=== PATIENT | male | born 1990 | race Hispanic/Latino ===

== ENCOUNTER 2016-04-09 22:33 | Observation (INO) | payer OTHER ==
[~2016-04-09] VITALS: Ht 177.8 cm; Wt 81.6 kg
--- NOTE | 2016-04-09 22:35 | NUR ---
PT BIBA FOR LEFT SIDED STABBING CHEST PAIN X2 DAYS. PT REPORTS PAIN INCREASES UPON INSPIRATION. PRIOR MEDICAL HX OF ASTHMA. PT DENIED SHORTNESS OF BREATH. PT CALM DURING ASSESSMENT BY PA.
--- NOTE | 2016-04-09 22:36 | NUR ---
FITZ REYES AT BEDSIDE FOR EVAL
--- NOTE | 2016-04-09 22:38 | ED GENERAL ADULT ---
See Addendum History of Present Illness General Chief Complaint: Chest Pain Stated Complaint: CHEST PAIN Source: patient Exam Limitations: no limitations Vital Signs & Intake/Output Vital Signs & Intake/Output Vital Signs Date Time Temp Pulse Resp B/P Pulse O2 O2 Flow FiO2 Ox Delivery Rate 04/10 0316 97.7 52 18 122/78 95 Room Air 04/10 0135 97.4 55 18 113/56 97 Room Air 04/10 0042 Room Air 04/09 2241 98.3 60 24 142/80 ED Intake and Output 04/10 0000 04/09 1200 Intake Total Output Total Balance Patient 180 lb Weight Allergies Coded Allergies: No Known Allergies (04/09/16) Reconcile Medications No Known Home Medications Triage Note: PT BIBA FOR CHEST PAIN X2 DAYS. EMS REPORTS PAIN "STABBING" WITH INCREASED PAIN ON RESPIRATION. Triage Nurses Notes Reviewed? yes Onset: Abrupt Duration: day(s): (3), constant Timing: recent history Severity: moderate, severe No Modifying Factors: none HPI: 25-YEAR-OLD MALE COMES INTO EMERGENCY ROOM WITH MULTIPLE COMPLAINTS. pATIENT REPORTS THAT FOR THE PAST 2-3 days he has been expressing some chest pain. Sharp. Continuous. Pain is nonradiating. Denies any fever chills vomiting. Patient reports that this morning he began with a headache as well as some left- sided numbness and weakness. Denies any neck pain or vomiting. Some associated shortness of breath. Denies any history of blood clots. Nothing seems to make the symptoms better or worse. (ANITA BAH) Past History Medical History Any Pertinent Medical History? none Surgical History Surgical History: non-contributory Family History Hx Contributory? No (ANITA BAH) Review of Systems Review of Systems Constitutional: Reports: no symptoms. EENTM: Reports: no symptoms. Respiratory: Reports: see HPI. Cardiovascular: Reports: see HPI. GI: Reports: no symptoms. Genitourinary: Reports: no symptoms. Musculoskeletal: Reports: no symptoms. Skin: Reports: no symptoms. Neurological/Psychological: Reports: see HPI. Hematologic/Endocrine: Reports: no symptoms. Immunologic/Allergic: Reports: no symptoms. All Other Systems: Reviewed and Negative (ANITA BAH) Physical Exam Physical Exam General Appearance: well developed/nourished, alert, awake, mild distress Head: atraumatic, normal appearance Eyes: Bilateral: normal appearance, PERRL, EOMI. Ears, Nose, Throat: normal pharynx, normal ENT inspection Neck: normal inspection, supple, full range of motion Respiratory: normal breath sounds, chest non-tender, no respiratory distress Cardiovascular: regular rate/rhythm Gastrointestinal: soft, non-tender Back: normal inspection Extremities: normal inspection Neurologic/Psych: awake, alert, oriented x 3, 3 out of 5 strength left upper extremity left lower extremity, pronator drift, Skin: intact, normal color Comments: - perc score, low prob wells criteria Core Measures ACS in differential dx? Yes CVA/TIA Diagnosis: No Severe Sepsis Present: No Septic Shock Present: No (AMY BYRNES,ANITA) Progress Differential Diagnoses I considered the following diagnoses in my evaluation of the patient: CVA, [place], pulmonary embolism, anxiety, pericarditis, Lyme disease, Gilliane barre syndrome , moyamoya syndrome, Plan of Care: Orders Procedure Date/time Status Regular Diet 04/10 B Active TROPONIN LEVEL 04/10 0315 Complete URINE DRUG SCREEN FOR ER ONLY 04/10 0231 Complete URINALYSIS 04/[address] in observation 04/09 2345 Active Patient Data 04/09 2345 Active Code Status 04/09 2345 Active Add-on Test (ER Only) 04/09 2332 Active Intake & Output 04/09 2254 Active LYME TITRE 04/09 2250 Active TROPONIN LEVEL 04/09 223 Complete PARTIAL THROMBOPLASTIN TIME 04/09 223 Complete PROTHROMBIN TIME 04/09 223 Complete COMPREHENSIVE METABOLIC PANEL 04/09 223 Complete CBC WITHOUT DIFFERENTIAL 04/09 2236 Complete EKG 04/09 2236 Active Current Medications Sig/Saida Start time Last Medication Dose Stop Time Status Admin Ketorolac 60 MG ONCE ONE 04/10 0200 CAN Tromethamine 04/10 0201 (Toradol) Laboratory Tests 04/10/16 0323: Troponin I < 0.01 04/10/16 0234: Urine Opiates Screen < 100.00, Methadone Screen < 40, Barbiturate Screen < 60, Ur Phencyclidine Scrn < 6.00, Amphetamines Screen < 100, U Benzodiazepines Scrn < 85, Urine Cocaine Screen < 50, Urine Cannabis Screen > 80.00 H, Urine Color YEL, Urine Clarity CLEAR, Urine pH 6.0, Ur Specific [place] 1.025, Urine Protein NEG, Urine Ketones NEG, Urine Nitrite NEG, Urine Bilirubin NEG, Urine Urobilinogen 0.2, Ur Leukocyte Esterase NEG, Ur Microscopic SEDIMENT EXAMINED, Urine RBC RARE, Ur Epithelial Cells RARE, Urine Mucus MOD H, Urine Hemoglobin TRACE-INTACT H, Urine Glucose NEG 04/09/162249: Anion Gap 9, Estimated GFR > 60, BUN/Creatinine Ratio 13.0, Glucose 117 H, Calcium 9.3, Total Bilirubin 0.4, AST 19, ALT 21, Alkaline Phosphatase 82, Troponin I < 0.01, Total Protein 6.4, Albumin 3.8, Globulin 2.6, Albumin/ Globulin Ratio 1.5, PT 10.0, INR 0.95, APTT 30, CBC w Diff NO MAN DIFF REQ, RBC 4.64 L, MCV 90.4, MCH 30.3, RDW 14.3, MPV 8.4, Gran % 47.9, Lymphocytes % 41.1, Monocytes % 6.7, Eosinophils % 3.5, Basophils % 0.8, Absolute Granulocytes 4.3, Absolute Lymphocytes 3.7 H, Absolute Monocytes 0.6, Absolute Eosinophils 0.3, Absolute Basophils 0.1, PUBS MCHC 33.5, Lyme Disease Antibody Pending Diagnostic Imaging: Viewed by Me: CT Scan. Discussed w/RAD: CT Scan. Radiology Impression: SERVICE DATE: 04/09/16 EXAM TYPE: CAT - CT HEAD WO IV CONTRAST EXAMINATION: CT HEAD WITHOUT CONTRAST CLINICAL INFORMATION: Weakness left side of body. Evaluate for cerebrovascular accident. COMPARISON: No relevant prior imaging is available. TECHNIQUE: Contiguous axial imaging was performed from the skull base to vertex without intravenous administration of contrast. DLP: 529.16 mGy-cm. FINDINGS: There is no acute intracranial hemorrhage or abnormal extra-axial collection. No intracranial mass effect or midline shift. Lateral and third ventricles are normal. No hydrocephalus. Ta- white matter differentiation is preserved and there is no evidence of acute territorial infarct. The calvarium and skull base are intact. Mastoid air cells and middle ear cavities are well aerated. Visualized paranasal sinuses are well aerated. IMPRESSION: Normal CT scan of the head. DICTATED BY: KIANA PAN,CHEPE Lafleur DATE/TIME DICTATED:04/09/162250 DIRECTOR COMPLIANCE:KATHY DATE/TIME TRANSCRIBED:04/09/162250 CONFIDENTIAL, DO NOT COPY WITHOUT APPROPRIATE AUTHORIZATION. Initial ED EKG: normal intervals, normal p-waves, normal QRS complex, normal sinus rhythm, rate (50) Hand-Off Endorsed To: FALGUNI ORELLANA MD Endorsed Time: 5 (ANITA BAH) Departure Departure Condition: Stable Clinical Impression Primary Impression: Chest pain Secondary Impressions: Headache Departure Forms: Customer Survey General Discharge Information Prescriptions: Current Visit Scripts No Known Home Medications (ANITA BAH) Departure Disposition: HOME OR SELF CARE Referrals: Dhara GRIFFITH MD Additional Instructions: Return if symptoms worsen or for any concerns. PA/SYNTHETIC FILAMENT SPINNER Co-Sign Statement Statement: ED Attending supervision documentation- [X] I saw and evaluated the patient. I have also reviewed all the pertinent lab results and diagnostic results. I agree with the findings and the plan of care as documented in the PA's/SYNTHETIC FILAMENT SPINNER's documentation. [X] I have reviewed the ED Record and agree with the PA's/SYNTHETIC FILAMENT SPINNER's documentation. [] Additions or exceptions (if any) to the PAs/SYNTHETIC FILAMENT SPINNER's note and plan are summarized below: [] (FALGUNI ORELLANA MD) Critical Care Note Critical Care Note Critical Care Time: 30-74 min (ANITA BAH) ED Attending Observation Initial Observation Note: I have seen and personally examined KO DO on 04/09/16 at 2343. I agree with the current emergency department documentation. The disposition (admission or discharge) is uncertain at this time, he needs a period of observation for the following reason(s): The ED Nurse caring for this patient has been personally informed as to what the patient is being observed for. (ANITA BAH) Initial Observation Note: I have seen and personally examined KO DO on 04/09/16 at 2346. I agree with the current emergency department documentation. The disposition (admission or discharge) is uncertain at this time, he needs a period of observation for the following reason(s): [Patient complaining of continuous left -sided sharp stabbing chest pain as well as left-sided weakness. On exam patient states he feels weak on the left side however there is no pronator drift. He has good muscle strength. Sensation is intact. He has normal finger to nose bilaterally. We will observe the patient in the emergency department for frequent neuro checks. Patient has no risk factors for CVA.] The ED Nurse caring for this patient has been personally informed as to what the patient is being observed for. Observation Re-Evaluation: I have reevaluated KO DO on 04/10/16 at 0315. The physical findings that support the continued need to observe this patient include [patient is feeling better after the IV Toradol. Patient states that his chest only hurts now when he presses on it. There is no pain really is not present on it. There is no shortness of breath. Patient remains slightly bradycardic. Patient's heart rate is in the mid to upper 40s to the mid to upper 50s. Patient denies any dizziness or lightheadedness. Patient states that is left-sided no longer feels weak. He still has full range of motion of his left upper extremity. There is no pronator drift. There is good muscle tone and reflexes.]. Observation Discharge: I have reevaluated KO DO on 04/10/16 at 0458. The patient is: ([X]): Stable for discharge (): To be admitted to Nursing Floor (): To be placed in Observation on Nursing Floor (): For transfer to other facility The patient was being observed for [chest pain and left-sided weakness] As a result of that observation, I have determined [all symptoms have resolved and the patient is stable for discharge]. (REYNA PAN,FALGUNI Milian)
--- NOTE | 2016-04-09 22:45 | NUR ---
PT TO CAT SCAN
--- NOTE | 2016-04-09 22:48 | NUR ---
PT RETURNED FROM CAT SCAN
--- NOTE | 2016-04-09 22:53 | NUR ---
IV ACCESS ESTABLISHED IN RW #20.
--- NOTE | 2016-04-09 22:56 | CT SCAN REPORT ---
EXAMINATION: CT HEAD WITHOUT CONTRAST CLINICAL INFORMATION: Weakness left side of body. Evaluate for cerebrovascular accident. COMPARISON: No relevant prior imaging is available. TECHNIQUE: Contiguous axial imaging was performed from the skull base to vertex without intravenous administration of contrast. DLP: 529.16 mGy-cm. FINDINGS: There is no acute intracranial hemorrhage or abnormal extra-axial collection. No intracranial mass effect or midline shift. Lateral and third ventricles are normal. No hydrocephalus. Ta-white matter differentiation is preserved and there is no evidence of acute territorial infarct. The calvarium and skull base are intact. Mastoid air cells and middle ear cavities are well aerated. Visualized paranasal sinuses are well aerated. IMPRESSION: Normal CT scan of the head.
[2016-04-09 22:59] LABS: ABSOLUTE BASOPHIL COUNT 0.1 /CUMM (0.0-0.2); ABSOLUTE EOSINOPHIL COUNT 0.3 /CUMM (0.0-0.7); ABSOLUTE GRANULOCYTE CT 4.3 /CUMM (1.4-6.5); ABSOLUTE LYMPH COUNT 3.7 /CUMM (1.2-3.4); ABSOLUTE MONOCYTE COUNT 0.6 /CUMM (0.10-0.60); BASOPHIL % 0.8 % (0.0-2.0); EOSINOPHIL % 3.5 % (0-5); GRANULOCYTE % 47.9 % (42.2-75.2); MEAN CORPUSCULAR HGB 30.3 PG (27.0-31.0); MEAN CORPUSCULAR HGB CONC 33.5 G/DL (33.0-37.0); MEAN CORPUSCULAR VOLUME 90.4 FL (80.0-94.0); MEAN PLATELET VOLUME 8.4 FL (7.4-10.4); PLATELET COUNT 223 /CUMM (130-400); RBC DISTRIBUTION WIDTH 14.3 % (11.5-14.5); RED BLOOD CELL CT 4.64 /CUMM (4.70-6.10)
[2016-04-09 23:07] LABS: PTT 30 SEC (25-37)
--- NOTE | 2016-04-09 23:45 | NUR ---
FITZ REYES IN TO DISCUSS POC
--- NOTE | 2016-04-09 23:50 | NUR ---
PT MEDICATED WITH 325MG ASPIRIN. SINUS LÁZARO ON MONITOR HR 55. DENIES SOB.
--- NOTE | 2016-04-10 00:29 | NUR ---
PT PROVIDED WITH EXTRA BLANKET PER REQUEST.
--- NOTE | 2016-04-10 01:10 | NUR ---
PT CALLED NURSING STAFF INTO ROOM. PT ASKING FOR A NEW IV. IV FLUSHED, DRESSING INTACT, NOTHING INFUSING AT THIS TIME. EXPLAINED TO PT THERE IS NO NEED FOR A NEW IV AT THIS TIME.
--- NOTE | 2016-04-10 02:13 | NUR ---
PT C/O OF PAIN TO . ORDER FOR TORADOL. PT MEDICATED PER ORDER AND STATES PAIN IS A 5/10. WILL REEVAL. CONTINUES TO BE SINUS LÁZARO ON MONITOR HR 56. DENIES ANY SOB.
--- NOTE | 2016-04-10 02:38 | NUR ---
PT REMAINS ON BRUSHER TENDER. HR LABILE 30'S-60'S. PT REMAINS SYMPTOM FREE, DENIES ANY DIZZINESS. BP STABLE 113/56. MD ORELLANA AWARE.
--- NOTE | 2016-04-10 03:27 | NUR ---
REPEAT TROPONIN SENT TO LAB. MD ORELLANA AT BEDSIDE TO REEVAL PT.
[2016-04-10 05:00] VITALS: BP 122/80
--- NOTE | 2016-04-10 05:07 | NUR ---
PT CLEARED FOR D/C BY . RX FOR MOTRIN. NUMBER PROVIDED FOR FOLLOW UP WITH PHARMACEUTICAL WORKER. D/C INSTRUCTIONS EXPLAINED AND PT VERBALIZED UNDERSTANDING.
== END 2016-04-10 05:23 ==
LOC: EDBD 22:33 → ERH 22:33 → ERHI 23:45
PROVIDERS: Physician Assistant Medical; ADMIT Emergency Medicine
DX: R07.9 Chest pain, unspecified (principal); R51 Headache
CPT/HCPCS: 86618; 80307; 81001; 93005; 93010; G0378; J1885